=== PATIENT | male | born 2000 | race Caucasian/White ===

== ENCOUNTER 2021-03-13 02:17 | Emergency (ER) | payer OTHER ==
[~2021-03-13 02:17] MED LIST: DELSYM30 MG/5 ML PO; EXPECTORANT200 MG PO; PREDNISONE 50 M50 MG PO; ZOFRAN4 MG PO
== END 2021-03-13 05:50 | disposition home or self-care (01) ==
LOC: ER1 02:17
DX: S09.90XA Unspecified injury of head, initial encounter (principal); S00.83XA Contusion of other part of head, initial encounter; F17.210 Nicotine dependence, cigarettes, uncomplicated; Z90.89 Acquired absence of other organs; Z88.0 Allergy status to penicillin; W22.8XXA Striking against or struck by other objects, initial encounter
CPT/HCPCS: 70450; 70486; 99284

== ENCOUNTER 2021-05-29 20:11 | Emergency (ER) | payer OTHER | END 2021-05-29 22:20 | disposition home or self-care (01) | LOC: ER1 20:11 | PROVIDERS: Physician Assistant | DX: Z13.89 Encounter for screening for other disorder (principal); F17.210 Nicotine dependence, cigarettes, uncomplicated; Z88.0 Allergy status to penicillin | CPT/HCPCS: 80307; 99282 ==

== ENCOUNTER → 2022-01-28 | Outpatient (CLI) | payer OTHER ==
[2022-01-28 13:52] LABS: HEMOGLOBIN 17.2 gm/dl (14.0-17.5); RED BLOOD COUNT 5.4 M/UL (4.20-5.50); WHITE BLOOD COUNT 10.2 K/UL (4.5-11.0)
[2022-01-28 16:04] LABS: BUN/CREATININE RATIO 17 (0-10)
[2022-01-29 08:14] LABS: CHOLESTEROL, TOTAL 243 mg/dL (100-199); HDL CHOLESTEROL 39 mg/dL (>39); LDL CHOLESTEROL CALC 151 mg/dL (0-99); LDL/HDL RATIO 3.9 ratio (0.0-3.6); T. CHOL/HDL RATIO 6.2 ratio (0.0-5.0); TRIGLYCERIDES 288 mg/dL (0-149)
== END ==
LOC: LAB 13:26
PROVIDERS: Nurse Practitioner Family
DX: I10 Essential (primary) hypertension (principal); E66.9 Obesity, unspecified; F41.9 Anxiety disorder, unspecified; R53.83 Other fatigue
CPT/HCPCS: 36415; 80053; 80061; 81001; 84439; 84443; 85025